=== PATIENT | male | born 1960 | race Caucasian/White ===

== ENCOUNTER 2018-06-14 17:00 | Outpatient (CLI) | payer OTHER | END 2018-06-14 17:01 | disposition home or self-care (01) | LOC: SLEEPLAB 17:00 | PROVIDERS: ATTEND Specialist | DX: G47.33 Obstructive sleep apnea (adult) (pediatric) (principal) | CPT/HCPCS: 95806 ==

== ENCOUNTER 2018-07-10 13:55 | Outpatient (CLI) | payer OTHER ==
--- NOTE | 2018-07-10 16:05 | RAD ---
RIGHT FOOT THREE VIEWS: 07/10/18 HISTORY: Foot injury. Patient fell last Monday. There are arthritic changes of the first metatarsophalangeal joint. There are calcaneal spurs present . There is a talar beak and there is subtalar joint arthritic change seen. IMPRESSION: Arthritic changes of the foot. No evidence of any acute fracture. POS: [facility]
== END 2018-07-10 13:56 | disposition home or self-care (01) ==
LOC: BICRAD 13:55
PROVIDERS: ATTEND Family Medicine
DX: S99.921A Unspecified injury of right foot, initial encounter (principal); M19.071 Primary osteoarthritis, right ankle and foot

== ENCOUNTER 2018-08-13 19:30 | Outpatient (CLI) | payer OTHER | END 2018-08-13 19:31 | disposition home or self-care (01) | LOC: SLEEPLAB 19:30 | PROVIDERS: ATTEND Specialist | DX: G47.33 Obstructive sleep apnea (adult) (pediatric) (principal); R53.83 Other fatigue; R09.89 Other specified symptoms and signs involving the circulatory and respiratory systems; R06.83 Snoring; Z68.33 Body mass index [BMI] 33.0-33.9, adult | CPT/HCPCS: 95811 ==

== ENCOUNTER 2019-02-08 15:23 | Outpatient (CLI) | payer OTHER ==
--- NOTE | 2019-02-08 15:53 | RAD ---
2 views chest. HISTORY: Bronchopneumonia. PA and lateral views of the chest obtained. The lungs are well aerated. No evidence of active intrathoracic disease seen. No evidence of effusion s, pneumonia or pneumothorax seen. IMPRESSION: unremarkable 2 views chest.
== END 2019-02-08 15:24 | disposition home or self-care (01) ==
LOC: BICRAD 15:23
PROVIDERS: ATTEND Family Medicine
DX: J18.0 Bronchopneumonia, unspecified organism (principal)
CPT/HCPCS: 71046

== ENCOUNTER 2019-11-21 18:00 | Outpatient (CLI) | payer OTHER | END 2019-11-21 18:01 | disposition home or self-care (01) | LOC: SLEEPLAB 18:00 | PROVIDERS: ATTEND Otolaryngology Plastic Surgery within the Head & Neck | DX: G47.33 Obstructive sleep apnea (adult) (pediatric) (principal); R06.83 Snoring; R53.83 Other fatigue; I10 Essential (primary) hypertension; I25.10 Atherosclerotic heart disease of native coronary artery without angina pectoris; G47.00 Insomnia, unspecified | CPT/HCPCS: 95806 ==